=== PATIENT | female | born 1990 | race Asian ===

== ENCOUNTER 2020-02-02 06:23 | Inpatient (IN) | payer OTHER ==
--- NOTE | 2020-02-02 08:53 | HP ---
General Information - Reason for Visit Pt reports SROM to clear fluid around 0500. UCs starting at 0400, increasing in frequency and intensity - General Information Maternal Age: 29 Grav: 1 Para: 0 SAB: 0 IEA: 0 Estimated Due Date: 02/08/20 Determined By: LMP Gestational Age in Weeks/Days: 39 10/21 Maternal Blood Type and Rh: B Positive - Results this Serology/RPR Result: Non-Reactive Rubella Result: Immune HBsAg Result: Negative HIV Result: Negative GBS Culture Result: Negative Past Medical History Pertinent Past Medical History: Non-Contributory Pertinent Past Surgical History: None Pertinent Family History: See Records - DM, thyroid disease, HTN - Antepartal Records Antepartal Records: Reviewed, Complicated by: - hypothyroidism, anemia Review of Systems Constitutional: Comfortable CV Complaint: No Respiratory: Shortness of Breath: No Gastrointestinal: No Nausea/Vomiting, Normal Bowel Movement Genitourinary: Leaking Fluid, No Dysuria, No Bleeding Musculoskeletal: No Epigastric Pain, Contractions Neurological: No Headache, No Visual Changes Movement: Normal Exam Allergies/Adverse Reactions: Allergies No Known Allergies Allergy (Verified 02/02/20 08:02) T-98.9, P-98, R-18, O2-98%, BP- 111/76 Lab Values - Entire Visit: Laboratory Tests 02/02/20 07:09 Vag Amniotic Fld Detect Positive - Measurements Height: 5 ft 4 in Weight: 72.575 kg Weight in lbs: 160.238698 Body Mass Index (BMI): 27.4 Pre- Weight: 62 kg - Exam Breast: Breast Exam Deferred CVA: No CVA Tenderness Extremities: No Edema Heart: Normal Rhythm/Heart Sounds HEENT: No Significant Findings Lungs: Clear Bilaterally Rectal: Rectal Exam Deferred Reflexes: DTR 2+ Thyroid: No Thyromegaly - Abdominal Exam Abdomen Exam: Non-Tender - Ultrasound/Biophysical Profile Ultrasound Status: Not Done Targeted Exam Findings See L&D Outpatient Visit Provider Note for Findings: N/A Estimated Weight: 7# Amniotic Fluid Evaluation: Positive ROM Plus Bleeding/Discharge: None - Cervical exam deferred in the context of ruptured membranes EFM Findings - External Monitor Findings Baseline Heart Rate: 130 External Monitor Findings: Accelerations Present, No Pattern of Variable or Late Decelerations, Variability Moderate, Baseline Stable Contractions: Regular, Mild, Moderate, 45-90 Seconds Contraction Frequency: 3-5 minutes Assessment/Plan - Assessment 29 year old at 39 1/7 weeks gestation with ruptured membranes in early labor. No evidence of acidemia or chorioamnionitis. - Plan Plan: Admit - Anticipate Vaginal Delivery Plan Comment: Cervical exam deferred in the context of ruptured membranes. Pt reports UCs getting stronger. Will do expectant management for now. Pt advised that if active labor does not ensue will recommend augmentation. Pt undecided re plan for pain relief. Advised of options. - Date/Time of Admission Date of Admission: 02/02/20 Time of Admission: 08:00
[2020-02-02 09:24] LABS: Urine Benzodiazepine Screen None Detected (None Detect); Urine Opiates Screen None Detected (None Detect)
[2020-02-02] MEDS: Oxytocin in LR* 20 UNITS/1,000 ML BAG IVPB SCH (12:46)
[2020-02-02 12:47] LABS: ABS Eosinophils 0.1 10^3/ul (0-0.6); ABS Lymphocytes 2.1 10^3/ul (1.0-4.8); ABS Neutrophils 12.2 10^3/ul (1.5-7.7); Eosinophil % 0.9 %; Hematocrit 39 % (35-47); Hemoglobin 13.2 g/dL (12.0-16.0); Lymphocyte % 13.6 %; Mean Corpuscular HGB Conc 34 g/dL (31-36); Mean Corpuscular Hemoglobin 33 pg (27-31); Mean Corpuscular Volume 95 fL (80-97); Mean Platelet Volume 9.5 fL (7.4-10.4); Platelet Count 298 10^3/uL (150-450); Red Blood Count 4.06 10^6 /uL (3.70-4.87); Red Cell Distribution Width 14 % (10-15); White Blood Count 15.5 10^3/uL (3.5-10.8)
--- NOTE | 2020-02-02 12:48 | PN ---
Progress Note - Progress Note Date of Service: 02/02/20 SOAP: Subjective: Pt still appears comfortable, reports having more back pain with UCs. Objective: FHR: Baseline 140/ moderate variability/ + accels/ no decels UCs: mild, every 3-5 minutes Cervix: 1 cm/ 70%/ -2/ vtx Temp: 97.8 Clear fluid Assessment: Pt still not in active labor. No evidence of acidemia or chorioamnionitis. Plan: Recommend augmentation of labor with Pitocin. After discussing risks and benefits, pt and in agreement with plan. Will start low dose protocol at 2 mu/min.
--- NOTE | 2020-02-02 13:40 | PTEDU ---
Patient Name: JUANA GARCIA RADHA JUANA selected video: Never Ever Shake a Baby to view on 02/02/2020 at 1:39:[address] [id number]
[2020-02-02] MEDS ORDERED: Morphine 10 MG/ML VIAL (1 ml) IV ONE (16:22)
[2020-02-02] MEDS ORDERED: Promethazine INJ(RESTRICTED)* 25 MG/ML 1 ML VIAL IV ONE (16:24)
--- NOTE | 2020-02-02 16:34 | PN ---
Progress Note - Progress Note Date of Service: 02/02/20 SOAP: Subjective: Pt very uncomfortable with ctx, but coping well. Interested in pain relief. Objective: Cervix: 2-3 cm/ 80%/ -1/ vtx FHR: Baseline 130/ moderate variability/ + accels/ no decels UCs: Q2-3 minutes Pitocin at 8 mu/min BP: 108/69 Temp: 98.0 Assessment: Pt making cervical change. No evidence of acidemia or chorioamnionitis. Plan: Discussed options for pain relief. Would be option to get epidural at this time , although it is a bit early. Alternately we could do IV pain medication. After discussing risks and benefits, pt elects to try IV pain medication. Morphine and Phenergan ordered.
[2020-02-02] MEDS ORDERED: OBEPIDURAL* 250 ML EPIDURAL ONE (19:48)
[2020-02-02] MEDS ORDERED: Buffered Lidocaine 1% SYRIN* 1 ML/SYRINGE INTRADERM ONE (20:15)
[2020-02-02] MEDS ORDERED: Lactated Ringers 1000 ML Bag* 1,000 ML IV ONE ×2 (20:15→21:35)
--- NOTE | 2020-02-02 20:23 | PN ---
Progress Note - Progress Note Date of Service: 02/02/20 SOAP: Subjective: Pt increasingly uncomfortable. Interested in epidural for pain relief. Objective: Cervix: 3-4 cm/ 90%/ 0 station FHR:Baseline 140/ moderate variability/ + accels/ early decels UCs: 2-3 minutes Pitocin was at 8 mu/min, now turned off Temp: 99.4 Assessment: Pt continues to make steady progress. No evidence of acidemia or chorioamnionitis. Plan: Anesthesiologist Dr. Cheek notified. She is in the OR and will likely not be done for 30-40 minutes, so Pitocin turned off for pt comfort until epidural in place. Will resume Pitocin once pt comfortable.
[2020-02-02] MEDS ORDERED: Lactated Ringers 1000 ML Bag* 1,000 ML IV SCH ×2 (21:00→22:00)
[2020-02-02] MEDS: Phenylephrine 40 MCG/ML SYRINGE IV PUSH PRN ×2 (21:15→21:39)
[2020-02-02] MEDS ORDERED: Famotidine TAB* 20 MG PO PRN (21:35)
[2020-02-02] MEDS ORDERED: Lactated Ringers 1000 ML Bag* 500 ML IV PRN ×2 (21:35)
[2020-02-02] MEDS ORDERED: Phenylephrine 40 MCG/ML SYRINGE IV PUSH PRN (21:35)
[2020-02-02] MEDS ORDERED: Sodium Citrate/Citric Acid* 15 ML UDC PO PRN (21:35)
[2020-02-02] MEDS ORDERED: EPHEDrine (Pressors)* 50 MG/ML VIAL IV PUSH PRN (21:35)
[2020-02-02] MEDS ORDERED: OBEPIDURAL* 250 ML EPIDURAL SCH (22:00)
[2020-02-02] MEDS: EPHEDrine (Pressors)* 50 MG/ML VIAL IV PUSH PRN ×3 (22:00→23:44)
[2020-02-02] MEDS ORDERED: Ondansetron INJ* 2 MG/ML VIAL IV PRN (22:09)
--- NOTE | 2020-02-02 22:16 | PN ---
Progress Note - Progress Note Date of Service: 02/02/20 SOAP: Subjective: Pt comfortable with epidural, does not feel ctx. Objective: FHR: Baseline 140/ moderate variability/ + accels/ no decels UCs: 2-4 minutes Pitocin restarted at 2 mu/min BP: 125/78 (had some hypotension following epidural placement, treated with phenylephrine and epinephrine) Temp: 99.4 Assessment: Pt comfortable with epidural, in active labor, no evidence of chorioamnionitis of acidemia. Experienced postepidural hypotension which is now improved. Plan: Continue Pitocin augmentation. Recheck pt in a few hours or as needed. Anticipate progression to full dilation and .
--- NOTE | 2020-02-03 01:14 | PN ---
Progress Note - Progress Note Date of Service: 02/03/20 SOAP: Subjective: Pt comfortable, sleeping intermittently. Objective: Cervix: 5cm/ 100%/ +1 station FHR: Baseline 155/ moderate variability/ + accels/ early decels UCs: 3-5 minutes BP 112/61 Temp: 100.8 (prior was 101.0 30 minutes ago) No abdominal tenderness Assessment: Pt febrile, possible chorioamnionitis. No evidence of acidemia. Pt progressing in dilation although slowly. Plan: Consulted with Dr. Fernandez. Will treat with ampicillin and gentamicin. Will continue to increase Pitocin. Will recheck in a couple hours or as needed.
[2020-02-03] MEDS ORDERED: GENTAMICIN ADULT IVPB SCH ×2 (01:30)
[2020-02-03] MEDS ORDERED: NS 0.9% IVPB SCH ×2 (01:30)
[2020-02-03] MEDS: Ampicillin ADVAN(*) 2 GM in NS 0.9% 100 ML* 100 ML IVPB SCH ×4 (01:38→18:50)
[2020-02-03] MEDS: Acetaminophen TAB* 325 MG PO ONE ×2 (01:42→02:54)
[2020-02-03] MEDS: GENTAMICIN ADULT IVPB SCH ×3 (02:05→17:42)
[2020-02-03] MEDS: NS 0.9% IVPB SCH ×3 (02:05→17:42)
--- NOTE | 2020-02-03 06:41 | PN ---
Progress Note - Progress Note Date of Service: 02/03/20 SOAP: Subjective: Pt remains comfortable with ctx Concerned regarding labor progress and tachycardia Objective: Cervix: 6cm/ 100%/ 0 station/ vtx FHR: Baseline curently 155, at highest was 165/ moderate variabilty UCs: 2-5 minutes BP: 108/60 Pitocin 14 mu/min Temp: 99.5 Assessment: Pt receiving antibiotics for suspected chorioamnionitis, temp and FHR improving. Pt making cervical change but slowly. Plan: Continue Pitocin augmentation. Continue to closely monitor and maternal status. Continue abx as prescribed. Recheck in a couple hours or as needed.
--- NOTE | 2020-02-03 12:16 | PN ---
Progress Note - Progress Note Date of Service: 02/03/20 Note: S: Feeling more low pelvic, rectal pressure with ctx. O: VE 9cm/100/0 FHT 150, mod vito, no decels, +accels Pit @ 12 UCs q 2-4 VSS, 99.0 A: IUP 39+2 weeks gestation prolongued rupture of membranes Doubt acidemia P: Continue to labor down until patient feeling continuous rectal pressure or urge to push or reassess PRN.
[2020-02-03] MEDS: Oxytocin in LR* 20 UNITS/1,000 ML BAG IVPB SCH (19:22)
[2020-02-03] MEDS ORDERED: Ibuprofen TAB* 600 MG ONE (19:59)
[2020-02-03] MEDS ORDERED: Dibucaine 1% 28.35 GM TUBE ONE (19:59)
[2020-02-03] MEDS ORDERED: Witch Hazel PAD* JAR ONE (20:00)
[2020-02-03] MEDS ORDERED: Witch Hazel PAD* JAR TOPICAL PRN (20:19)
[2020-02-03] MEDS ORDERED: Acetaminophen TAB* 325 MG PO PRN (20:19)
[2020-02-03] MEDS ORDERED: Dibucaine 1% 28.35 GM TUBE PR PRN (20:19)
[2020-02-03] MEDS ORDERED: Glycerin ADULT SUPP PR PRN (20:19)
[2020-02-03] MEDS ORDERED: Lactated Ringers 1000 ML Bag* 1,000 ML IV SCH (21:00)
[2020-02-03] MEDS ORDERED: Oxytocin in LR* 20 UNITS/1,000 ML BAG IVPB SCH (21:00)
[2020-02-03] MEDS ORDERED: Lidocaine 1% INJ* 10 MG/ML 30 ML SDV ONE (21:09)
[2020-02-04] MEDS: Docusate CAP* 100 MG PO SCH ×4 (00:12→20:12)
[2020-02-04] MEDS: Ampicillin ADVAN(*) 2 GM in NS 0.9% 100 ML* 100 ML IVPB SCH (02:53)
[2020-02-04] MEDS: NS 0.9% IVPB SCH (03:29)
[2020-02-04] MEDS: GENTAMICIN ADULT IVPB SCH (03:29)
[2020-02-04 06:50] LABS: Hematocrit 32 % (35-47); Hemoglobin 10.6 g/dL (12.0-16.0); Mean Corpuscular HGB Conc 33 g/dL (31-36); Mean Corpuscular Hemoglobin 32 pg (27-31); Mean Corpuscular Volume 96 fL (80-97); Mean Platelet Volume 9.2 fL (7.4-10.4); Platelet Count 210 10^3/uL (150-450); Red Cell Distribution Width 14 % (10-15); White Blood Count 24.1 10^3/uL (3.5-10.8)
[2020-02-04 06:54] LABS: ABS Basophils 0.1 10^3/ul (0-0.2); ABS Eosinophils 0.1 10^3/ul (0-0.6); ABS Lymphocytes 2.6 10^3/ul (1.0-4.8); ABS Monocytes 1.6 10^3/ul (0-0.8); ABS Neutrophils 19.8 10^3/ul (1.5-7.7); Eosinophil % 0.5 %; Lymphocyte % 10.8 %; Nucleated Red Blood Cells % 0.1
[2020-02-04] MEDS ORDERED: Ferrous Gluconate TAB* 324 MG TAB PO SCH (09:00)
--- NOTE | 2020-02-04 09:12 | PROCNOTE ---
[facility] OB: Delivery Note - Delivery A Date of : 02/03/20 Time of : 19:48 Brogan Sex: Female Weight at : 6 lb 14 oz Score 1 Minute: 9 Score 5 Minutes: 9 Gestational Age in Weeks and Days at Delivery: 39 Weeks and 2 Days Delivery Method: Spontaneous Vaginal Labor: Spontaneous Did Patient attempt ?: N/A, No Previous Amniotic Fluid: Clear Anesthesia/Analgesia: CEI for Labor Delivered By: Meme Majano - Nursery Level of Nursery: Regular/Bedside - Perineum Perineal Injury: 2nd Degree Perineal Injury Comment: 3-0 Rapide Perineal Repair: By Delivering Practioner - Events Delivery Events of Note: Pitocin Only After Delivery, Chorio in Labor, Maternal Temperature during Labor, Pushed > 3 Hours - Additional Delivery Notes Additional Delivery Notes: Анна is a admitted after spontaneous rupture with progression via pitocin augmentation. Labor included diagnosis of chorioamnionitis with antibiotic treatment and resolution of fever. Length of active labor 24'15", pushed 5 hours. Coached through various pushing positions and techniques with slow steady progress. Patient tiring and decision made to initiate MD consult for possible vacuum assisted delivery, however, patient continued to make progress with eventual SVB. Baby born OA to LEORA, shoulders smoothly following head. Nuchal cord noted, too tight to unwrap so baby born through easily and unwrapped after delivery. To maternal abdomen with spontaneous cry, HR>110. Cord doubly clamped and cut by baby's father once pulsations ceased. Fundus firm to massage and pitocin infusion. Mother and baby stable, baby at breast to initiate after .
[2020-02-04] MEDS: Ibuprofen TAB* 600 MG PO PRN ×2 (10:33→17:04)
[2020-02-05 07:56] VITALS: BP 97/68
[2020-02-05] MEDS: Docusate CAP* 100 MG PO SCH (09:29)
[2020-02-05] MEDS: Ibuprofen TAB* 600 MG PO PRN (09:29)
== END 2020-02-05 14:11 | disposition home or self-care (01) | DRG 805 ==
LOC: MCHOBOUT 06:23 → MCHOB 08:22
PROVIDERS: ADMIT Midwife; ATTEND Midwife
PROC: 10E0XZZ Delivery of Products of Conception, External Approach (ICD-10-PCS; principal; 2020-02-02)
PROC: 0KQM0ZZ Repair Perineum Muscle, Open Approach (ICD-10-PCS; 2020-02-02)
PROC: 4A0HXCZ Measurement of Products of Conception, Cardiac Rate, External Approach (ICD-10-PCS; 2020-02-02)
DX: O69.81X0 Labor and delivery complicated by cord around neck, without compression, not applicable or unspecified (principal); O99.42 Diseases of the circulatory system complicating childbirth; Z37.0 Single live birth; O41.1230 Chorioamnionitis, third trimester, not applicable or unspecified; O99.02 Anemia complicating childbirth; E03.9 Hypothyroidism, unspecified; D64.9 Anemia, unspecified; O70.1 Second degree perineal laceration during delivery; O76 Abnormality in fetal heart rate and rhythm complicating labor and delivery; I95.89 Other hypotension; O99.284 Endocrine, nutritional and metabolic diseases complicating childbirth; Z3A.39 39 weeks gestation of pregnancy
CPT/HCPCS: 36415; 80307; 84112; 85025; 86850; 86900; 86901; A9270-GY; G0480; J1580; J2270; J2550